=== PATIENT | male | born 1975 | race Caucasian/White ===

== ENCOUNTER 2019-06-17 15:33 | Emergency (ER) | payer MEDICAID, OTHER ==
[2019-06-17] MEDS: ERTAPENEM SODIUM 1 GM in SOD CHLORIDE 0.9% 100 ML IVPB (18:50)
== END 2019-06-17 19:57 | disposition home or self-care (01) ==
LOC: E/R 15:33
DX: L03.314 Cellulitis of groin (principal)
CPT/HCPCS: 96374; 99284-25